=== PATIENT | female | born 1945 | race Hispanic/Latino ===

== ENCOUNTER 2017-12-20 09:29 | Outpatient (CLI) | payer MEDICARE, OTHER ==
--- NOTE | 2017-12-20 11:25 | ULT ---
RIGHT UPPER QUADRANT ULTRASOUND: INDICATIONS: Nonalcoholic steatohepatitis. FINDINGS: Increased echogenicity is present within the liver parenchyma. A small cyst is seen within the liver with mild internal increased echogenicity. The gallbladder is not visualized. The common duct an ures 9 mm, which is within normal limits in size, status post cholecystectomy. No ascites. IMPRESSION: 1. Evidence of hepatic steatosis. 2. Small, mildly complex cyst of the liver, measuring approximately 1 cm, without significant interv al change. 3. Status post cholecystectomy. POS: NATE
== END 2017-12-20 09:30 | disposition home or self-care (01) ==
LOC: ULT 09:29
PROVIDERS: ATTEND Family Medicine
DX: K75.81 Nonalcoholic steatohepatitis (NASH) (principal); K76.89 Other specified diseases of liver; Z90.49 Acquired absence of other specified parts of digestive tract
CPT/HCPCS: 76700

== ENCOUNTER 2021-09-04 08:15 | Outpatient (CLI) | payer MEDICARE, OTHER | END 2021-09-04 08:16 | disposition home or self-care (01) | LOC: CT 08:15 | PROVIDERS: ATTEND Student in an Organized Health Care Education/Training Program | DX: H90.8 Mixed conductive and sensorineural hearing loss, unspecified (principal) | CPT/HCPCS: 70480; 70486 ==

== ENCOUNTER 2021-09-14 10:09 | Outpatient (CLI) | payer MEDICARE, OTHER | END 2021-09-14 10:10 | disposition home or self-care (01) | LOC: MRI 10:09 | PROVIDERS: ATTEND Student in an Organized Health Care Education/Training Program | DX: M89.50 Osteolysis, unspecified site (principal); I67.82 Cerebral ischemia; Q01.8 Encephalocele of other sites | CPT/HCPCS: 70553; 82565 ==

== ENCOUNTER 2022-10-01 09:10 | Outpatient (CLI) | payer MEDICARE, OTHER | END 2022-10-01 09:11 | disposition home or self-care (01) | LOC: BICMAMMO 09:10 | PROVIDERS: ATTEND Family Medicine | DX: Z12.31 Encounter for screening mammogram for malignant neoplasm of breast (principal); Z80.3 Family history of malignant neoplasm of breast | CPT/HCPCS: 77063; 77067 ==

== ENCOUNTER 2023-10-11 12:37 | Outpatient (CLI) | payer MEDICARE, OTHER | END 2023-10-11 12:38 | disposition home or self-care (01) | LOC: BICMAMMO 12:37 | PROVIDERS: ATTEND Internal Medicine | DX: Z12.31 Encounter for screening mammogram for malignant neoplasm of breast (principal); Z80.3 Family history of malignant neoplasm of breast | CPT/HCPCS: 77063; 77067 ==